=== PATIENT | male | born 1945 | race Caucasian/White ===

== ENCOUNTER 2017-09-04 13:02 | Outpatient (POV) | payer MEDICARE, SELFPAY | END 2017-09-04 17:05 | disposition home or self-care (01) | PROVIDERS: Visit Provider Podiatrist | DX: M86.172 Other acute osteomyelitis, left ankle and foot (principal); A48.0 Gas gangrene; E11.22 Type 2 diabetes mellitus with diabetic chronic kidney disease; E11.621 Type 2 diabetes mellitus with foot ulcer; Z48.00 Encounter for change or removal of nonsurgical wound dressing | CPT/HCPCS: 36415; 80048; 82550; 96365; 96375; J0878 ==

== ENCOUNTER → 2017-10-27 | Outpatient (POV) | payer MEDICARE, SELFPAY | PROVIDERS: Visit Provider Internal Medicine | DX: I25.10 Atherosclerotic heart disease of native coronary artery without angina pectoris (principal); I10 Essential (primary) hypertension; I65.23 Occlusion and stenosis of bilateral carotid arteries; E11.9 Type 2 diabetes mellitus without complications; R94.31 Abnormal electrocardiogram [ECG] [EKG]; I21.9 Acute myocardial infarction, unspecified | CPT/HCPCS: 93005 ==

== ENCOUNTER → 2017-11-02 18:00 | Outpatient (REF) | payer MEDICARE, SELFPAY | LOC: LAB 18:00 | PROVIDERS: PCP Orthopaedic Surgery; Visit Provider Orthopaedic Surgery | DX: R41.82 Altered mental status, unspecified (principal) | CPT/HCPCS: 87070; 87077; 87186; 87205 ==

== ENCOUNTER 2017-11-07 09:14 | Observation (INO) | payer MEDICARE, MEDICAID, SELFPAY ==
[2017-11-07] VITALS (20 sets, daily range): BP systolic 116–149; BP diastolic 59–76; PULSE 62–81; RESP 12–73; TEMP 36.4–36.7; O2SAT 94–100; BMI 30.4; BMI 27.7
--- NOTE | 2017-11-07 10:33 | HMH.ANESCL ---
[facility] Anesthesia Checklist - Patient Identification Patient Identification: Arm Band, Verbal (Name & ) - Structural Data Admitted From: Home Consent for Planned Operative Procedure(s) Verified: Yes Verified Documents: Surgical Consent - NPO Status Verified Time NPO: 00:00 - Additional verifications Anesthesia Reactions: No - Cardiovascular Assessment Pulse Strength: Strong Pulse Rhythm: Regular Peripheral Edema: No - Airway Assessment C-Spine Mobility Assessed: Yes TMJ Mobility Assessed: Yes Dentition: Edentulous - Neurological Assessment Level of Consciousness: Awake, Alert, Appropriate Hx Seizures: No Numbness or tingling in extremities: No - Genitourinary Assessment Urinary Incontinence: None - Anesthesia Plan Anesthesia Risk discussed: Yes ASA Class: III Anesthesia Type: General [facility] Anesthesia HX I have reviewed the patient's past medical history: Yes Medical History: Reports:: Coronary Artery Disease, Diabetes Mellitus Type 1, Gastroesophageal Reflux Disease, Myocardial Infarction, Renal Disease Laterality Cases: Left: Other (bka) Other Surgeries: Yes: EGD Amputation: Yes Fractures: No *Family Hx:: Unable to obtain
--- NOTE | 2017-11-07 10:36 | P.PN_ITS ---
[facility] Anesthesia Checklist - Patient Identification Patient Identification: Arm Band, Verbal (Name & ) - Structural Data Admitted From: Home Consent for Planned Operative Procedure(s) Verified: Yes Verified Documents: Surgical Consent - NPO Status Verified Time NPO: 00:00 - Additional verifications Anesthesia Reactions: No - Cardiovascular Assessment Pulse Strength: Strong Pulse Rhythm: Regular Peripheral Edema: No - Airway Assessment C-Spine Mobility Assessed: Yes TMJ Mobility Assessed: Yes Dentition: Edentulous - Neurological Assessment Level of Consciousness: Awake, Alert, Appropriate Hx Seizures: No Numbness or tingling in extremities: No - Genitourinary Assessment Urinary Incontinence: None - Anesthesia Plan Anesthesia Risk discussed: Yes ASA Class: III Anesthesia Type: General [facility] Anesthesia HX I have reviewed the patient's past medical history: Yes Medical History: Reports:: Coronary Artery Disease, Diabetes Mellitus Type 1, Gastroesophageal Reflux Disease, Myocardial Infarction, Renal Disease Laterality Cases: Left: Other (bka) Other Surgeries: Yes: EGD Amputation: Yes Fractures: No *Family Hx:: Unable to obtain
[2017-11-07 11:01] LABS: POC Glucose,Bedside 133 mg/dL
[2017-11-07 11:18] LABS: Anion Gap 15.9 mEq/L (5-15); Blood Urea Nitrogen 28 mg/dL (7-18); Carbon Dioxide 26 mmol/L (21.0-32.0); Chloride 101 mmol/L (98-107); Creatinine Clearance Estimated 44 mL/min (0-300); Creatinine,Serum 1.87 mg/dL (0.70-1.30); Estimated Glomerular Filt Rate 35 ml/min (>60); GFR (African American) 43 ML/MIN (>60); Glucose 136 mg/dL (74-106); Potassium 3.9 mmoL/L (3.5-5.1); Sodium 139 mmol/L (136-145)
[2017-11-07 11:19] LABS: Basophils % 0.3 % (0.1-2.0); Eosinophils # 0.1 K/mm3 (0.0-0.4); Eosinophils % 0.9 % (0.1-12.0); Hematocrit 33.6 % (42.0-52.0); Hemoglobin 10.7 g/dL (14.1-18.0); Lymphocytes # 1.9 K/mm3 (0.7-4.5); Lymphocytes % 14.3 K/mm3 (10-50); Mean Corpuscular HGB Conc 31.9 g/dL (31.8-35.4); Mean Corpuscular Hemoglobin 27.8 pg (27.0-31.2); Mean Corpuscular Volume 87.3 fl (80-94); Mean Platelet Volume 7.4 fl (7.4-10.4); Monocytes # 0.7 K/mm3 (0.1-1.0); Monocytes % 5.4 % (1.7-9.3); Neutrophils # 10.5 K/mm3 (1.8-7.8); Platelet Count 393 K/mm3 (142-424); Red Blood Count 3.85 M/mm3 (4.60-6.20); Red Cell Distribution Width 13.9 % (11.5-17.5); White Blood Count 13.2 K/mm3 (4.8-10.8)
[2017-11-07 12:39] LABS: Erythrocyte Sedimentation Rate > 120 mm/hr (0-20)
--- NOTE | 2017-11-07 12:48 | HMH.ANESI ---
[facility] Anesthesia Record Part I Intake, IV Amount: 1,200 Estimated blood loss (mL): 100 Urine output (mL): 0 Blood Pressure: 116/59 SaO2: 100 Pulse Rate: 74 Respiratory Rate: 12 Temperature: 97.9 F Patient is:: Awake, Stable Stable to PACU at:: 12:45
--- NOTE | 2017-11-07 12:49 | HMH.ANESII ---
[facility] Anesthesia Record Part II Discharge Time: 13:15 Destination: floor PACU nurse assessment reviewed?: Yes Patient Condition:: Good Anesthesia Complications:: None
--- NOTE | 2017-11-07 14:16 | SW/DCPLANNER ---
I have spoke with Sara from [facility] regarding this patient. Sara has stated that the plan is for this patient to discharge back to [facility] tomorrow once ready for discharge.
--- NOTE | 2017-11-07 15:23 | PC.NURSE ---
11/07/17 1253 Pt awake at this time/ LMA out
--- NOTE | 2017-11-07 15:35 | PC.NURSE ---
11/07/17 1315 Pt transported via bed to room 214 2nd floor med/surg per rocio roldan and juanita,rn at this time. Pt transported on O2 at 2lpm per nc d/t drowsiness. Pt stable upon leaving pacu. Pt left in care of ROCIO Reyes at bedside/stable.
--- NOTE | 2017-11-07 15:44 | SUR.OPER ---
Addendum entered by Gloria Evans RN 11/07/17 16:49: PROCEDURE DONE: IRRIGATION AND DRAINAGE OF LEFT BELOW THE KNEE AMPUTATION INFECTION Original Note: two sets of cultures taken: set #1 is left leg lateral knee, anaerobic culture and wound culture set #2 is left leg medial knee, anaerobic culture and wound culture
--- NOTE | 2017-11-07 18:59 | PC.NURSE ---
PATIENT IS A POST OP PATIENT HAVING AN I & D TODAY OF THE LEFT LOWER LEG. HE IS RESTING IN BED AT THIS TIME WITH NO COMPLAINTS. VITAL SIGNS ARE STABLE, LUNGS SOUND DIMINISHED WITH FINE CRACKLES ON THE RIGHT SIDE. NO DISTRESS NOTED AT THIS TIME WILL CONTINUE TO MONITOR.
[2017-11-08] VITALS (9 sets, daily range): BP systolic 124–146; BP diastolic 56–70; PULSE 56–67; RESP 16–20; TEMP 36.3–36.7; O2SAT 95–97; BMI 27.6
[2017-11-08 01:57] LABS: POC Glucose,Bedside 129 mg/dL
[2017-11-08 01:57] LABS: POC Glucose,Bedside 171 mg/dL
--- NOTE | 2017-11-08 06:48 | PC.NURSE ---
PT HAS NOT C/O PAIN OR DISCOMFORT TO LLE. DRESSING TO LLE INTACT. PT RESTING IN BED. V/S HAVE REMAINED STABLE. MEDICATIONS ADMINISTERED PER MAR. NO CONCERNS NOTED AT THIS TIME. WILL CONTINUE TO MONITOR.
[2017-11-08 06:56] LABS: POC Glucose,Bedside 74 mg/dL
--- NOTE | 2017-11-08 07:52 | PC.NURSE ---
REPORT HANDOFF TO CAROLYN DAWKINS
--- NOTE | 2017-11-08 08:02 | PC.NURSE ---
REPORT FROM Erm[facility] CHILD RN THIS AM
--- NOTE | 2017-11-08 09:19 | HMH.OPNOTE ---
Date of procedure: 11/08/17 Pre-op Diagnosis:: MRSA infectionLeft BKA stump Post-op diagnosis:: same Procedure performed:: Incision, irrigation, debridement, of left BKA stump infection Surgeon:: Jame Murdock MD PATIENT OBSERVER:: Other Anesthesia: other Estimated blood loss (mL): 5 Clinical Note:: The patient underwent left BKA for severe peripheral vascular disease and limb infection approximately 3 weeks ago.Aspiration of a small hematoma in clinic grew MRSA...Formal incision, irrigation, debridement is indicated to help resolve this infection.At time of surgery, it was noted that the Steri-Strips that have been placed here in clinic had been removed and other Steri-Strips placed.This Has occurred in the few days since sutures were removed Operative findings:: The patient was taken the operating room placed in the supine position. At the time of surgery, it was noted that the Steri-Strips that we had carefully placed in our clinic some 5 days ago had been removed and other Steri-Strips have been placed. After administration of general anesthesia prepped and draped in the usual sterile fashion. The lateral area of dehiscence was carefully spread with Metzenbaum scissors and we used a curette and a 15 blade to remove nonviable subcutaneous fat and fascia. We then used nonpulsatile irrigation using a bulb syringe so as to avoid trauma from pulsatile flow. The wound was thoroughly evacuated. I should mention, prior to this debridement, we did collect a specimen for culture and sensitivity and submitted for laboratory analysis. After this was copiously irrigated, we performed this same sequence on the medial wound area of dehiscence using separate scissors and separate bulb irrigation set up. Again cultures were taken and submitted as an independent culture. After debridement of both the medial and lateral aspects of the wound, we carefully packed a gauze sponge soaked with a 10-1 dilution of Betadine and normal saline. Dressings were applied and the patient taken to the postanesthesia care unit in good condition. Tourniquet time (min): 0 Condition: stable Disposition: PACU Specimens:: 2 specimens submitted for culture and sensitivity consisting of aerobic and anaerobic specimens Complications:: None
--- NOTE | 2017-11-08 09:33 | HMH.OPNOTE ---
Date of procedure: 11/07/17 Pre-op Diagnosis:: Left below knee amputation stump infection with MRSA Post-op diagnosis:: same Procedure performed:: Incision, irrigation, debridement of left BKA stump infection Surgeon:: Jame Murdock MD PASSENGER RATE CLERK:: Other Anesthesia: other Estimated blood loss (mL): 5 Clinical Note:: Patient is an adult male with severe peripheral vascular disease who underwent a left below-knee amputation several weeks ago. See him back in approximately 3 week point. He had developed a small seroma and the seroma was aspirated. Cultures were submitted and later grew MRSA. As such, formal incision, irrigation, and debridement are indicated to help resolve this wound infection. Operative findings:: The patient taken to the operating room and placed in the supine position and given a general anesthetic. We noted at time of surgery that the Steri-Strips we had placed in our office some 5 days ago had been removed and replaced with other Steri-Strips which are not available here at [facility]. The lateral aspect of the wound showed slight dehiscence as did the medial aspect. After appropriate prepping and draping, we spread the lateral aspect of the wound and also the medial aspect of the wound using separate instruments to avoid any potential cross contamination despite the fact these were likely involving similar organisms. We did not find a deep pocket of infection nor gross purulence. We debrided full-thickness epidermis, dermis, subcutaneous fat, and down to the fascia of the muscle. We irrigated with a bulb syringe to avoid traumatizing tissue with pulsatile lavage. Each wound was irrigated separately and with a separate bulb syringe irrigation set up. We used a curette and a 15 blade to remove nonviable fascia and fat. Following this, a dilute Betadine solution of approximately 10-1 was utilized to soak gauze. These gauze sponges were then placed into the each wound and dressings were applied. No tourniquet had been utilized during this case. The patient was awakened and transported to the recovery room in satisfactory condition *Plan will call for consultative pharmacy and likely use of either vancomycin, daptomycin, ertapenem as indicated by sensitivity results. We will also. contact our wound care clinic well as the patient's primary care physician Pathology: other (Culture and sensitivity aerobic and anaerobic are sent. 2 specimens submitted) Condition: stable Disposition: PACU Complications:: None
--- NOTE | 2017-11-08 09:38 | P.OP_ITS ---
Date of procedure: 11/07/17 Pre-op Diagnosis:: Left below knee amputation stump infection with MRSA Post-op diagnosis:: same Procedure performed:: Incision, irrigation, debridement of left BKA stump infection Surgeon:: Jame Murdock MD HEAT TRANSFER TECHNICIAN:: Other Anesthesia: other Estimated blood loss (mL): 5 Clinical Note:: Patient is an adult male with severe peripheral vascular disease who underwent a left below-knee amputation several weeks ago. See him back in approximately 3 week point. He had developed a small seroma and the seroma was aspirated. Cultures were submitted and later grew MRSA. As such, formal incision, irrigation, and debridement are indicated to help resolve this wound infection. Operative findings:: The patient taken to the operating room and placed in the supine position and given a general anesthetic. We noted at time of surgery that the Steri-Strips we had placed in our office some 5 days ago had been removed and replaced with other Steri-Strips which are not available here at [facility]. The lateral aspect of the wound showed slight dehiscence as did the medial aspect. After appropriate prepping and draping, we spread the lateral aspect of the wound and also the medial aspect of the wound using separate instruments to avoid any potential cross contamination despite the fact these were likely involving similar organisms. We did not find a deep pocket of infection nor gross purulence. We debrided full-thickness epidermis, dermis, subcutaneous fat , and down to the fascia of the muscle. We irrigated with a bulb syringe to avoid traumatizing tissue with pulsatile lavage. Each wound was irrigated separately and with a separate bulb syringe irrigation set up. We used a curette and a 15 blade to remove nonviable fascia and fat. Following this, a dilute Betadine solution of approximately 10-1 was utilized to soak gauze. These gauze sponges were then placed into the each wound and dressings were applied. No tourniquet had been utilized during this case. The patient was awakened and transported to the recovery room in satisfactory condition *Plan will call for consultative pharmacy and likely use of either vancomycin, daptomycin, ertapenem as indicated by sensitivity results. We will also. contact our wound care clinic well as the patient's primary care physician Pathology: other (Culture and sensitivity aerobic and anaerobic are sent. 2 specimens submitted) Condition: stable Disposition: PACU Complications:: None
--- NOTE | 2017-11-08 10:25 | PC.NURSE ---
PATIENT HAS AN AMPUTATION LEFT LOWER LEG DRESSING INTACT CANNOT EVALUATE AT THIS TIME.
--- NOTE | 2017-11-08 14:35 | P.CONPHA_ITS ---
[facility] Pharmacy VTE Monitoring - Patient Demographics Admission date: 11/07/17 Report Date: 11/08/17 Time: 14:34 Allergies/Adverse Reactions: No Known Allergies Allergy (Verified 11/07/17 09:46) Height: 1.73 m Weight: 82.639 kg - VTE Risk Labs: VTE Related Lab Results Hgb 10.7 g/dL (14.1-18.0) L 11/07/17 10:51 Hct 33.6 % (42.0-52.0) L 11/07/17 10:51 Plt Count 393 K/mm3 (142-424) 11/07/17 10:51 BUN 28 mg/dL (7-18) H 11/07/17 10:51 Creatinine 1.87 mg/dL (0.70-1.30) H 11/07/17 10:51 Estimated Creat Clear 44 mL/min (0-300) 11/07/17 10:51 Was VTE Risk Assessment Performed: No VTE Risk Level: Low Risk Clinical Trial Participant: No - Prophylaxis VTE Prophylaxis Ordered?: Yes Types of VTE Prophylaxis: Pharmacological Pharmacologic Type: Other (ASPIRIN AND PLAVIX PER MD)
--- NOTE | 2017-11-08 14:49 | SW/DCPLANNER ---
Patient will not discharge back to [facility] this afternoon. Sara has been informed of this situation. I will notify Sara once patient is ready for discharge.
--- NOTE | 2017-11-08 15:19 | HMH.PTWOUND ---
Rehab Inpt Wound Evaluation Rehab IP Wound Evaluation Start: 11/08/17 14:59 Freq: once Status: Active Protocol: Document 11/08/17 09:45 PHOCELESTE (Rec: 11/08/17 15:19 PHORNE [id number]) Rehab PT Wound Assessment Subjective Subjective 72 yom adm to [facility] with Left LE wounds at incision site of prior BKA ~ 1 mo ago due to gangrene. Wound Left Leg Wound Type Incision Is This a Chronic Wound No Wound penetrating to tendon or capsule w/ infection Wound Length (cm) 5.0 Wound Width (cm) 12.0 Wound Depth (cm) 5.0 Wound Bed Appearance Dusky Red Percentage Granulated (%) 50 Percentage of Slough (%) 50 Wound Margins Description Necrotic Edema Type Non-Pitting Edema Degree 1+ Query Text:1+ Trace, Barely Detectable, Rebound 15-30 seconds 2+ Moderate, Slight Indentation, Rebound 10-20 seconds 3+ Deep, Deeper Indentation, Rebound > 30 seconds 4+ Very Deep, Rebound > 60 seconds Wound Drainage Description Serosanguineous Purulent Drainage Amount None Drainage Odor No Odor Dressing Status Changed Soiled Wound Topical Solution/Irrigant Saline Irrigant Packing Type Alginate Primary Dressing foam Wound Secondary Dressing Type Gauze Roll/Wrap Wound Debridement Method Mechanical Wound Debridement Amount of Tissue None Removed Dressing Change Date 11/08/17 Dressing Change Patient Tolerance Tolerated Well Plan/Recommendation Comment Return to [facility] once medically stable. Pack with Calcium Alginate once every 2- 3 days as need with appropriate secondary dressing . Eval Complexity Eval Charge Codes 22540 - High Complexity G-codes PT Current Status Self Care PT Current Status Modifier CM-At least 80% but less than 100% impaired, limited or restricted PT Goal Status Self Care PT Goal Status Modifer CM-At least 80% but less than 100% impaired, limited or restricted PHYSICIAN CERTIFICATION: I certify the specified therapy services for Stacey Plascencia are required, authorized, and reviewed every 30
--- NOTE | 2017-11-08 18:55 | PC.NURSE ---
PATIENT HAS DONE WELL TODAY COMPLAINED OF PAIN X 1 AND WAS MEDICATED PER ORDER. HE HAS EATEN 100% OF ALL MEALS TODAY. DRESSING IS CLEAN DRY AND INTACT, DRESSING WAS CHANGED BY THERAPY TODAY. DR. LASSITER VISITED AT BEDSIDE. LUNG SOUNDS ARE DIMINISHED IN THE BASES AND NOTED SOME FINE CRACKLES IN THE RIGHT LOWER LOBE. PATIENT HAS NOT REQUIRED INSULIN TODAY. WILL CONTINUE TO MONITOR. CAROLYN DAWKINS, MSN, RN
[2017-11-08 20:32] LABS: POC Glucose,Bedside 125 mg/dL
[2017-11-08 20:32] LABS: POC Glucose,Bedside 117 mg/dL
[2017-11-08 20:32] LABS: POC Glucose,Bedside 118 mg/dL
[2017-11-09] VITALS: BP 166/72; RESP 18; TEMP 36.4; O2SAT 97
--- NOTE | 2017-11-09 01:09 | PC.NURSE ---
WAS UNABLE TO CHART PATIENTS PULSE RATE IN VITAL SIGNS . HE PULSE RATE WAS 69
[2017-11-09 04:15] VITALS: BP 153/52; RESP 18; TEMP 36.5; O2SAT 95
--- NOTE | 2017-11-09 04:41 | PC.NURSE ---
PATIENT HAS SLEPT WELL THIS SHIFT. DRESSING TO RLE REMAINS CDI. PATIENT C/O PAIN TO BUTTOCK AND RLE X1 AND RECEIVED PRN PAIN MEDICATION, WHICH WAS EFFECTIVE. RESP EVEN AND UNLABORED. NO DISTRESS NOTED. PATIENT HAS BEEN TURNED AND REPOSITIONED EVERY 2 HOURS THIS SHIFT TO PREVENT FURTHER SKIN BREAKDOWN. PATIENT CURRENTLY IN BED ASLEEP. NO OTHER PROBLEMS NOTED AT THIS TIME. VSS. WILL CONTINUE TO MONITOR. SAFETY MEASURES IN PLACE, CALL LIGHT IN REACH.
--- NOTE | 2017-11-09 05:25 | PC.NURSE ---
Still unable chart patients pulse rate . PATIENTS pulse rate is 56
[2017-11-09 06:39] LABS: POC Glucose,Bedside 62 mg/dL
[2017-11-09 08:00] VITALS: BP 138/62; PULSE 63; RESP 20; TEMP 36.4
--- NOTE | 2017-11-09 10:16 | XR_ITS ---
XR chest portable PICC plac HISTORY: ITS.REASON: Confirm PICC line placement ORDERING PHYSICIAN: Jame Murdock MD PATIENT AGE: 72 years COMPARISON: 10/17/2017 FINDINGS: Left upper extremity PICC line has been inserted. The tip is in good position in the region of the superior vena cava. There is a small left pleural effusion with minimal atelectatic change in the left lung base. Right lung is clear. Unremarkable heart size. IMPRESSION: 1. Good placement of PICC line. 2. Small left effusion with mild left basilar atelectasis.
[2017-11-09 11:42] LABS: POC Glucose,Bedside 105 mg/dL
--- NOTE | 2017-11-09 13:20 | HMH.ORTHPN ---
Subjective Date: 11/09/17 Time: 09:00 PN: Obj Ex Vital signs: Temp Pulse Resp BP Pulse Ox 97.5 F L 63 20 138/62 95 11/09/17 08:00 11/09/17 08:00 11/09/17 08:00 11/09/17 08:00 11/09/17 04:15 - Constitutional Comments: The patient is seen with Obdulio Hansen of physical therapy/wound management. He denies pain. His dressings are removed and the wound inspected. Centrally there appears to be adequate blood flow. Medially and laterally, the wounds appear marginal as far as blood flow. We have elected to pack with a dilute Betadine solution and begin wet-to-dry dressings daily. We will plan on rechecking him next week after discharge to his retirement. He may be a candidate for a wound VAC at that time. I have also discussed with the patient that he may need revision to a higher level. In the meantime we will continue antibiotics and his regular medications. Patient's vital signs are reviewed as well Progress Note: A&P - Time Spent With Patient 25 - 35 minutes (Wet to dry dressings applied by me ?2)
--- NOTE | 2017-11-09 13:24 | P.PN_ITS ---
Subjective Date: 11/09/17 Time: 09:00 PN: Obj Ex Vital signs: Temp Pulse Resp BP Pulse Ox 97.5 F L 63 20 138/62 95 11/09/17 08:00 11/09/17 08:00 11/09/17 08:00 11/09/17 08:00 11/09/17 04:15 - Constitutional Comments: The patient is seen with Obdulio Hansen of physical therapy/wound management. He denies pain. His dressings are removed and the wound inspected. Centrally there appears to be adequate blood flow. Medially and laterally, the wounds appear marginal as far as blood flow. We have elected to pack with a dilute Betadine solution and begin wet-to-dry dressings daily. We will plan on rechecking him next week after discharge to his halfway. He may be a candidate for a wound VAC at that time. I have also discussed with the patient that he may need revision to a higher level. In the meantime we will continue antibiotics and his regular medications. Patient's vital signs are reviewed as well Progress Note: A&P - Time Spent With Patient 25 - 35 minutes (Wet to dry dressings applied by me ?2)
--- NOTE | 2017-11-09 13:24 | HMH.DCSUM ---
General - General Admission date: 11/07/17 Discharge date: 11/09/17 HPI HPI: The patient underwent below-knee amputation for severe peripheral vascular disease and left lower limb infection approximately 3 weeks ago. He is developed a wound infection growing MRSA. He has been taken back to the operating room for I&D of the abscess. He is ready to return to his nursing facility at this time Objective Vital signs: Temp Pulse Resp BP Pulse Ox 97.5 F L 63 20 138/62 95 11/09/17 08:00 11/09/17 08:00 11/09/17 08:00 11/09/17 08:00 11/09/17 04:15 - *Routine Respiratory Exam Present: CTA bilaterally - *Routine Cardiovascular Exam Present: RRR, Normal S1, Normal S2 - *Routine Rectal Exam Comments: Rectal examination is not indicated on this patient - *Routine Exam Comments: Not indicated this admission - *Routine Extremities Exam Comments: Pedal pulses are not palpable on the right lower extremity due to known peripheral vascular disease. BKA incision line with dehiscence as noted previously. Growing MRSA. Questionable viability far as healing - *Routine Skin Exam Comments: No evidence of decubitus ulcerations are pending ulcerations. The amputation incision is intact in the middle with slight dehiscence medially and more significant dehiscence laterally. Both medially and laterally have been packed with wet-to-dry gauze dressings diluted with Betadine approximately 10-1 - *Routine Neurological Exam Present: alert, oriented X3 Results Labs on day of discharge: Labs from last 24 hours 11/09/17 11/09/17 11/08/17 11:31 06:23 20:23 POC Glucose 105 62 118 11/08/17 11/08/17 16:48 11:30 POC Glucose 125 117 Preliminary micro results at discharge 11/07/17 Unknown Wound Culture - Preliminary Knee,Left Gram Positive Cocci Meds Home Medications Medication Instructions Recorded Confirmed Type Acetaminophen [Tylenol 500mg 500 mg PO Q4HP PRN 11/07/17 11/07/17 History tablet] Amlodipine Besylate [Norvasc 5mg 5 mg PO DAILY 11/07/17 11/07/17 History tablet] Aspirin [Aspir 81] 81 mg PO DAILY 11/07/17 11/07/17 History Clopidogrel Bisulfate [Plavix 75mg 75 mg PO DAILY 11/07/17 11/07/17 History Tab] Collagenase Clostridium Hist. 30 gm TP DAILY 11/07/17 11/07/17 History [Santyl Ointment 30gm] Glimepiride 4 mg PO DAILY 11/07/17 11/07/17 History Insulin Glargine,Hum.rec.anlog 26 unit SQ 2100 11/07/17 11/07/17 History [Insulin Glargine 100 Units/mL 3mL flexpen] Insulin Lispro [Humalog Kwikpen 0 unit SQ ACHS PRN 11/07/17 11/07/17 History U-100] Ipratropium/Albuterol Sulfate 3 ml IH QIDP PRN 11/07/17 11/07/17 History [Duoneb 3mL neb] LORazepam [Ativan 0.5mg tablet] 0.5 mg PO NEEDED PRN 11/07/17 11/07/17 History Lisinopril [Lisinopril 20mg Tab] 20 mg PO DAILY 11/07/17 11/07/17 History Metoprolol Tartrate [Metoprolol 150 mg PO BID 11/07/17 11/07/17 History Tartrate 100mg Tablet] Nystatin [Nystatin Cr 100,000 1 oint TOPICAL TID 11/07/17 11/07/17 History Units/GM 30GM] Oxycodone HCl/Acetaminophen 1 each PO Q6HP PRN 11/07/17 11/07/17 History [Endocet 5-325 Tablet] Pantoprazole Sodium [Protonix 40mg 40 mg PO DAILY 11/07/17 11/07/17 History tablet] Polyethylene Glycol 3350 [Miralax 17 gm PO DAILYP PRN 11/07/17 11/07/17 History 17gm Packet] Potassium Chloride [K-Tab ER 20 40 meq PO BID 11/07/17 11/07/17 History mEq] Povidone-Iodine [Betadine] 15 ml TP NEEDED PRN 11/07/17 11/07/17 History Sertraline HCl [Zoloft] 50 mg PO DAILY 11/07/17 11/07/17 History Simvastatin 80 mg PO DAILY 11/07/17 11/07/17 History Sucralfate [Sucralfate 1gm 1 gm PO ACHS 11/07/17 11/07/17 History Tab] Triamcinolone Acetonide 1 gm TP BID 11/07/17 11/07/17 History cephALEXin [Keflex 500mg Cap] 500 mg PO QID 11/07/17 11/07/17 History hydroCHLOROthiazide [HCTZ 25mg 25 mg PO DAILY 11/07/17 11/07/17 History tab
--- NOTE | 2017-11-09 13:27 | P.DS_ITS ---
General - General Admission date: 11/07/17 Discharge date: 11/09/17 HPI HPI: The patient underwent below-knee amputation for severe peripheral vascular disease and left lower limb infection approximately 3 weeks ago. He is developed a wound infection growing MRSA. He has been taken back to the operating room for I&D of the abscess. He is ready to return to his nursing facility at this time Objective Vital signs: Temp Pulse Resp BP Pulse Ox 97.5 F L 63 20 138/62 95 11/09/17 08:00 11/09/17 08:00 11/09/17 08:00 11/09/17 08:00 11/09/17 04:15 - *Routine Respiratory Exam Present: CTA bilaterally - *Routine Cardiovascular Exam Present: RRR, Normal S1, Normal S2 - *Routine Rectal Exam Comments: Rectal examination is not indicated on this patient - *Routine Exam Comments: Not indicated this admission - *Routine Extremities Exam Comments: Pedal pulses are not palpable on the right lower extremity due to known peripheral vascular disease. BKA incision line with dehiscence as noted previously. Growing MRSA. Questionable viability far as healing - *Routine Skin Exam Comments: No evidence of decubitus ulcerations are pending ulcerations. The amputation incision is intact in the middle with slight dehiscence medially and more significant dehiscence laterally. Both medially and laterally have been packed with wet-to-dry gauze dressings diluted with Betadine approximately 10-1 - *Routine Neurological Exam Present: alert, oriented X3 Results Labs on day of discharge: Labs from last 24 hours 11/09/17 11/09/17 11/08/17 11:31 06:23 20:23 POC Glucose 105 62 118 11/08/17 11/08/17 16:48 11:30 POC Glucose 125 117 Preliminary micro results at discharge 11/07/17 Unknown Wound Culture - Preliminary Knee,Left Gram Positive Cocci Meds Home Medications Medication Instructions Recorded Confirmed Type Acetaminophen [Tylenol 500mg 500 mg PO Q4HP PRN 11/07/17 11/07/17 History tablet] Amlodipine Besylate [Norvasc 5mg 5 mg PO DAILY 11/07/17 11/07/17 History tablet] Aspirin [Aspir 81] 81 mg PO DAILY 11/07/17 11/07/17 History Clopidogrel Bisulfate [Plavix 75mg 75 mg PO DAILY 11/07/17 11/07/17 History Tab] Collagenase Clostridium Hist. 30 gm TP DAILY 11/07/17 11/07/17 History [Santyl Ointment 30gm] Glimepiride 4 mg PO DAILY 11/07/17 11/07/17 History Insulin Glargine,Hum.rec.anlog 26 unit SQ 2100 11/07/17 11/07/17 History [Insulin Glargine 100 Units/mL 3mL flexpen] Insulin Lispro [Humalog Kwikpen 0 unit SQ ACHS PRN 11/07/17 11/07/17 History U-100] Ipratropium/Albuterol Sulfate 3 ml IH QIDP PRN 11/07/17 11/07/17 History [Duoneb 3mL neb] LORazepam [Ativan 0.5mg tablet] 0.5 mg PO NEEDED PRN 11/07/17 11/07/17 History Lisinopril [Lisinopril 20mg Tab] 20 mg PO DAILY 11/07/17 11/07/17 History Metoprolol Tartrate [Metoprolol 150 mg PO BID 11/07/17 11/07/17 History Tartrate 100mg Tablet] Nystatin [Nystatin Cr 100,000 1 oint TOPICAL TID 11/07/17 11/07/17 History Units/GM 30GM] Oxycodone HCl/Acetaminophen 1 each PO Q6HP PRN 11/07/17 11/07/17 History [Endocet 5-325 Tablet] Pantoprazole
--- NOTE | 2017-11-09 15:28 | SW/DCPLANNER ---
I have notified Sara from [facility] to let her know that this patient will be discharging back to them today 11/09/17 and has ordered for a wound VAC to be placed once admitted back to [facility]. Patient discharge information has already been faxed to [facility]. Sara has no other questions at this time.
== END 2017-11-09 17:03 ==
LOC: 2ND 09:16
PROVIDERS: Admitting Provider Orthopaedic Surgery; PCP Orthopaedic Surgery; Visit Provider Orthopaedic Surgery
PROC: (CPT 11043; principal; 2017-11-07 11:00)
DX: T87.44 Infection of amputation stump, left lower extremity (principal); E11.52 Type 2 diabetes mellitus with diabetic peripheral angiopathy with gangrene; I21.3 ST elevation (STEMI) myocardial infarction of unspecified site; I96 Gangrene, not elsewhere classified; B95.62 Methicillin resistant Staphylococcus aureus infection as the cause of diseases classified elsewhere; E78.2 Mixed hyperlipidemia; I25.119 Atherosclerotic heart disease of native coronary artery with unspecified angina pectoris; I11.9 Hypertensive heart disease without heart failure
CPT/HCPCS: 11043; 36569; 71045; 80048; 82962; 85025; 85651; 86141; 87070; 87077; 87186; 87205; 96374; C1751; G0378; J0878; J1335

== ENCOUNTER 2017-11-26 17:33 | Emergency (ER) | payer MEDICARE, MEDICAID, SELFPAY ==
[2017-11-26 17:34] VITALS: BP 123/64; PULSE 82; RESP 18; TEMP 36.6; O2SAT 99; BMI 27.3
--- NOTE | 2017-11-26 17:39 | XR_ITS ---
XR chest AP Ordering Physician: Collette Gonzalez MD Patient Age: 72 years: Male HISTORY: ITS.REASON: fall TECHNIQUE: AP portable chest COMPARISON :Previous portable chest 11/09/2017 and September 2017., CT ofcervical spine from today includes the upper lung maurice and is helpful for correlation as well.. FINDINGS Suboptimal inspiration. With Diaphragms only down to the anterior fourth fifth rib on right. Slight elevation right hemidiaphragm compared to previous study. Accentuation of markings at the right and left suprahilar region. Initially I would question early infiltrate here but this CT cervical spine which include this portion of the lung shows no infiltrate. Favor merely suboptimal inspiration and atelectasis. If respiratory symptoms persist consider follow-up Mild cardiomegaly. Coronary artery stent noted The blunting left CP angle is similar to previous chest films. October 2017 most likely chronic pleural change and less likely small pleural effusion PICC line enters from the left tip at SVC. -----IMPRESSION: --------- 1. Poor inspiration. Limited portable chest Accentuated markings apices most likely due to atelectasis] for symptoms recommend follow-up Note Accentuation of markings at the right suprahilar & left suprahilar region towards upper lobes appears to reflect atelectasis as CT C-spine from today shows the upper lung maurice to be clear with no airspace disease, with better inspiration Also lucent line along lateral margin right lung base on CXR appears to be a skin fold with no pneumothorax evident on the CT C-spine slices through upper lungs 2. Cardiomegaly. Stable PICC line... 3. If chest pain or respiratory symptoms. Would recommend follow-up CXR 2 view
--- NOTE | 2017-11-26 17:39 | XR_ITS ---
XR hip LT 2-3V w/pelvis HISTORY: Posttraumatic pain ITS.REASON: fall ORDERING PHYSICIAN: Collette Gonzalez MD PATIENT AGE: 72 years COMPARISON: None FINDINGS: No fracture or dislocation is evident. Mild osteoarthritic change. Generalized vascular calcification. IMPRESSION: Mild osteoarthritis, no acute fracture
--- NOTE | 2017-11-26 17:42 | CT_ITS ---
CT cervical spine wo con CLINICAL INDICATION: Neck pain following injury ITS.REASON: fall ORDERING PHYSICIAN: Collette Gonzalez MD PATIENT AGE: 72 years COMPARISON: None FINDINGS: Normal alignment. No fracture or dislocation. No lytic or blastic change. Prior right occipital craniectomy. 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
--- NOTE | 2017-11-26 17:42 | CT_ITS ---
CT head/brain wo con HISTORY: Headache, head pain following blunt trauma, contusion or hematoma ITS.REASON: fall ORDERING PHYSICIAN: Collette Gonzalez MD PATIENT AGE: 72 years COMPARISON: 09/07/2017 TECHNIQUE: Axial images obtained without contrast. Brain and bone windows reviewed. FINDINGS: Prior right craniectomy in the right posterior fossa with encephalomalacia change in the right cerebellar hemisphere. No midline shift or mass effect. Mild atrophy with periventricular ischemic gliotic change. No acute intracranial hemorrhage. IMPRESSION: 1. No acute intracranial findings. 2. Postsurgical change with atrophy, encephalomalacia, and chronic microangiopathic changes
--- NOTE | 2017-11-26 18:25 | HMH.EDFALL ---
ED Disposition Clinical Impression: Fall, Anemia, Renal insufficiency, Hx of BKA, Osteomyelitis, Diabetic complication, PVD (peripheral vascular disease) Disposition: Home, Self-Care Condition on Discharge: Good Additional Instructions: Instrucrtions for the [place] staff: 1- repeat CBC and BMP in AM , report results to Dr martinez. If transfusion needed it can be done as outpatient per Dr Moser. 2- review final CXR and pelvis reports with Dr Martinez. Referrals: Hany Martinez MD [Primary Care Provider] - - Critical Care Critical Care Time: No Attestation: On 11/26/17, the high probability of a clinically significant, sudden or life threatening deterioration of the following system(s) required my full and direct attention, intervention and personal management. The time I documented below is in addition to time spent performing reported procedures but includes the following listed in this critical care notation. Medical Decision Making - Medical Records Medical records reviewed: Yes: I reviewed the patient's medical records. Vital Signs: 11/26/17 17:34 11/26/17 19:33 Temperature 97.8 F Temperature Source Oral Pulse Rate [Right Brachial] 82 58 L Respiratory Rate 18 16 Blood Pressure [123/64] 123/64 140/75 Blood Pressure Mean [123/64] 83 96 Blood Pressure Source [123/64] Automatic Cuff Blood Pressure Position [123/64] Sitting 02 Sat by Pulse Oximetry 99 94 L Oxygen Delivery Method Room Air - Lab Data Lab Results 11/26/17 18:30: WBC 9.0, RBC 2.95 L, Hgb 8.3 L, Hct 26.0 L, MCV 88.0, MCH 27.9, MCHC 31.7 L, RDW 14.5, Plt Count 456 H, MPV 7.1 L, Neut % (Auto) 74.4, Lymph % (Auto) 15.6, Whiteside % (Auto) 6.8, Eos % (Auto) 2.7, Baso % (Auto) 0.5, Neut # (Auto) 6.7, Lymph # (Auto) 1.4, Whiteside # (Auto) 0.6, Eos # (Auto) 0.2, Baso # (Auto) 0.0 11/26/17 18:50: Sodium 141, Potassium 4.7, Chloride 107, Carbon Dioxide 27, Anion Gap 11.7, BUN 33 H, Creatinine 1.78 H, Estimated Creat Clear 42, Estimated GFR 38 L, Est GFR ( Amer) 45 L, Glucose 187 H, Calcium 8.3 L, Total Bilirubin 0.2, AST 17, ALT 19, Alkaline Phosphatase 126 H, Total Creatine Kinase 31 L, CK-MB (CK-2) < 0.5, CK-MB (CK-2) Rel Index 1.6, Troponin I < 0.02, Total Protein 7.1, Albumin 2.2 L, Globulin 4.9 H, Albumin/Globulin Ratio 0.4 L 11/26/17 20:08: Stool Occult Blood Positive A Result diagrams: 11/26/17 18:30 11/26/17 18:50 Orders (Tests/Meds): ORDERS Category Date Time Status CT cervical spine wo con Stat Cat Scan 11/26/17 17:[address] head/brain wo con Stat Cat Scan 11/26/17 17:42 Taken XR chest AP Stat Exams 11/26/17 17:39 Taken XR hip LT 2-3V w/pelvis Stat Exams 11/26/17 17:39 Taken Blood Culture Stat Micro 11/26/17 19:00 Received - Radiology Data #1 Image(s): Chest, Pelvis Image Reviewed: Yes I reviewed the patient's radiology image Preliminary Findings: Normal/NAD - CT Data CT Scan: Head, C-Spine Time Received: 20:[address] Reviewed: Yes: I have viewed the radiologist's interpretation - ECG Data Tracing #1 64 normal sinus rhythm T-wave inversion in inferior leads lateral leads. This is an improvement from prior EKGs done on 1220 and [address] elevation nferior wall [place]. I reviewed all his ECGs in this facility. Only normal EKG was in March 2013. ECG initial impression date: 11/26/17 - Keith Inquiry Pt receiving controlled substance: No Keith was queried for this patient: No Medical Decision Making Narrative: Mr. Ms. Amaya remained stable during his ED stay. I reviewed his recent hemoglobin with Dr. Moser was television agent for Dr. Martinez. He feels that repeat CBC in the morning and reported Dr. Martinez would be most appropriate. If it drops any more he can transfuse him as an outpatient. Dr Moser will notify Dr Martinez in AM for follow up. Addendum. Rectal exam had no melanotic stool but the test it was read as positive, most likely because of a grade
--- NOTE | 2017-11-26 18:30 | ED_ITS ---
ED Disposition Clinical Impression: Fall, Anemia, Renal insufficiency, Hx of BKA, Osteomyelitis, Diabetic complication, PVD (peripheral vascular disease) Disposition: Home, Self-Care Condition on Discharge: Good Additional Instructions: Instrucrtions for the [place] staff: 1- repeat CBC and BMP in AM , report results to Dr martinez. If transfusion needed it can be done as outpatient per Dr Moser. 2- review final CXR and pelvis reports with Dr Martinez. Referrals: Hany Martinez MD [Primary Care Provider] - - Critical Care Critical Care Time: No Attestation: On 11/26/17, the high probability of a clinically significant, sudden or life threatening deterioration of the following system(s) required my full and direct attention, intervention and personal management. The time I documented below is in addition to time spent performing reported procedures but includes the following listed in this critical care notation. Medical Decision Making - Medical Records Medical records reviewed: Yes: I reviewed the patient's medical records. Vital Signs: 11/26/17 17:34 11/26/17 19:33 Temperature 97.8 F Temperature Source Oral Pulse Rate [Right Brachial] 82 58 L Respiratory Rate 18 16 Blood Pressure [123/64] 123/64 140/75 Blood Pressure Mean [123/64] 83 96 Blood Pressure Source [123/64] Automatic Cuff Blood Pressure Position [123/64] Sitting 02 Sat by Pulse Oximetry 99 94 L Oxygen Delivery Method Room Air - Lab Data Lab Results 11/26/17 18:30: WBC 9.0, RBC 2.95 L, Hgb 8.3 L, Hct 26.0 L, MCV 88.0, MCH 27.9, MCHC 31.7 L, RDW 14.5, Plt Count 456 H, MPV 7.1 L, Neut % (Auto) 74.4, Lymph % ( Auto) 15.6, Coles % (Auto) 6.8, Eos % (Auto) 2.7, Baso % (Auto) 0.5, Neut # (Auto ) 6.7, Lymph # (Auto) 1.4, Coles # (Auto) 0.6, Eos # (Auto) 0.2, Baso # (Auto) 0.0 11/26/17 18:50: Sodium 141, Potassium 4.7, Chloride 107, Carbon Dioxide 27, Anion Gap 11.7, BUN 33 H, Creatinine 1.78 H, Estimated Creat Clear 42, Estimated GFR 38 L, Est GFR ( Amer) 45 L, Glucose 187 H, Calcium 8.3 L, Total Bilirubin 0.2, AST 17, ALT 19, Alkaline Phosphatase 126 H, Total Creatine Kinase 31 L, CK-MB (CK-2) < 0.5, CK-MB (CK-2) Rel Index 1.6, Troponin I < 0.02, Total Protein 7.1, Albumin 2.2 L, Globulin 4.9 H, Albumin/Globulin Ratio 0.4 L 11/26/17 20:08: Stool Occult Blood Positive A Result diagrams: 11/26/17 18:30 11/26/17 18:50 Orders (Tests/Meds): ORDERS Category Date Time Status CT cervical spine wo con Stat Cat Scan 11/26/17 17:[address] head/brain wo con Stat Cat Scan 11/26/17 17:42 Taken XR chest AP Stat Exams 11/26/17 17:39 Taken XR hip LT 2-3V w/pelvis Stat Exams 11/26/17 17:39 Taken Blood Culture Stat Micro 11/26/17 19:00 Received - Radiology Data #1 Image(s): Chest, Pelvis Image Reviewed: Yes I reviewed the patient's radiology image Preliminary Findings: Normal/NAD - CT Data CT Scan: Head, C-Spine Time Received: 20:[address] Reviewed: Yes: I have viewed the radiologist's interpretation - ECG Data Tracing #1 64 normal sinus rhythm T-wave inversion in inferior leads lateral leads. This is an improvement from prior EKGs done on 1220 and [address] elevation nferior wall [place]. I reviewed all his ECGs in this facility. Only normal EKG was in March 2013. ECG initial impression date: 11/26/17 - Keith Inquiry Pt receiving c
[2017-11-26 19:02] LABS: Basophils % 0.5 % (0.1-2.0); Eosinophils # 0.2 K/mm3 (0.0-0.4); Eosinophils % 2.7 % (0.1-12.0); Hemoglobin 8.3 g/dL (14.1-18.0); Lymphocytes # 1.4 K/mm3 (0.7-4.5); Lymphocytes % 15.6 K/mm3 (10-50); Mean Corpuscular HGB Conc 31.7 g/dL (31.8-35.4); Mean Corpuscular Hemoglobin 27.9 pg (27.0-31.2); Mean Platelet Volume 7.1 fl (7.4-10.4); Monocytes # 0.6 K/mm3 (0.1-1.0); Monocytes % 6.8 % (1.7-9.3); Neutrophils # 6.7 K/mm3 (1.8-7.8); Neutrophils % 74.4 % (37.0-80.0); Platelet Count 456 K/mm3 (142-424); Red Blood Count 2.95 M/mm3 (4.60-6.20); Red Cell Distribution Width 14.5 % (11.5-17.5)
[2017-11-26 19:26] LABS: Alanine Aminotransferase 19 U/L (12-78); Albumin Level 2.2 gm/dL (3.4-5.0); Albumin/Globulin Ratio 0.4 (1.1-1.8); Alkaline Phosphatase 126 U/L (46-116); Anion Gap 11.7 mEq/L (5-15); Aspartate Amino Transferase 17 U/L (15-37); Bilirubin,Total 0.2 mg/dL (0.2-1.0); Blood Urea Nitrogen 33 mg/dL (7-18); Calcium 8.3 mg/dL (8.5-10.1); Carbon Dioxide 27 mmol/L (21.0-32.0); Chloride 107 mmol/L (98-107); Creatine Kinase 31 U/L (39-308); Creatinine Clearance Estimated 42 mL/min (0-300); Creatinine,Serum 1.78 mg/dL (0.70-1.30); Estimated Glomerular Filt Rate 38 ml/min (>60); GFR (African American) 45 ML/MIN (>60); Globulin 4.9 gm/dl (1.3-3.2); Glucose 187 mg/dL (74-106); Potassium 4.7 mmoL/L (3.5-5.1); Sodium 141 mmol/L (136-145); Total Protein,Serum 7.1 gm/dL (6.4-8.2); Troponin I < 0.02 ng/ml (0.00-0.06)
[2017-11-26 19:27] LABS: CKMB Relative Index 1.6 U/L (0-4.0); Creatine Kinase MB < 0.5 mg/ml (0.0-3.6)
[2017-11-26 19:33] VITALS: BP 140/75; PULSE 58; RESP 16; O2SAT 94
[2017-11-26 20:16] LABS: Occult Blood,Stool Positive (Negative)
--- NOTE | 2017-11-26 20:56 | PC.NURSE ---
Called report to Milagro at [facility]
[2017-11-26 21:22] VITALS: BP 160/75; PULSE 72; RESP 16; O2SAT 98
[2017-11-26 22:23] VITALS: BP 145/70; PULSE 61; O2SAT 97
== END 2017-11-26 23:44 | disposition home or self-care (01) ==
PROVIDERS: Emergency Provider Emergency Medicine; PCP Family Medicine
DX: D64.9 Anemia, unspecified (principal); N28.9 Disorder of kidney and ureter, unspecified; Z89.512 Acquired absence of left leg below knee; E11.42 Type 2 diabetes mellitus with diabetic polyneuropathy; L89.309 Pressure ulcer of unspecified buttock, unspecified stage; Z91.81 History of falling; Z79.02 Long term (current) use of antithrombotics/antiplatelets; Z79.82 Long term (current) use of aspirin; Z79.4 Long term (current) use of insulin; Z79.891 Long term (current) use of opiate analgesic; Z79.899 Other long term (current) drug therapy; I25.10 Atherosclerotic heart disease of native coronary artery without angina pectoris; K21.9 Gastro-esophageal reflux disease without esophagitis; I25.2 Old myocardial infarction
CPT/HCPCS: 36415; 70450; 71045; 72125; 73502; 80053; 82272; 82550; 82553; 84484; 85025; 87040; 93005; 99284; G0328

== ENCOUNTER 2017-12-07 09:57 | Outpatient (CLI) | payer MEDICARE, MEDICAID, SELFPAY | END 2017-12-07 10:15 | disposition home or self-care (01) | LOC: INF 10:00 | PROVIDERS: PCP Family Medicine; Visit Provider Orthopaedic Surgery | DX: M86.172 Other acute osteomyelitis, left ankle and foot (principal) | CPT/HCPCS: G0463 ==

== ENCOUNTER → 2017-12-11 11:13 | Outpatient (REF) | payer MEDICARE, MEDICAID, SELFPAY | LOC: LAB 11:13 | PROVIDERS: Visit Provider Podiatrist | DX: Z51.89 Encounter for other specified aftercare (principal) | CPT/HCPCS: 87070; 87077; 87186; 87205 ==

== ENCOUNTER 2017-12-21 09:45 | Outpatient (CLI) | payer MEDICARE, MEDICAID, SELFPAY ==
[2017-12-21] VITALS (8 sets, daily range): BP systolic 145–163; BP diastolic 63–85; PULSE 60–67; RESP 16–18; TEMP 36.6; BMI 26.8
--- NOTE | 2017-12-21 11:17 | PC.NURSE ---
Per group home, obtained height and weight from patient's nurse.
== END 2017-12-21 14:05 | disposition home or self-care (01) ==
LOC: INF 09:54
PROVIDERS: PCP Family Medicine; Visit Provider Podiatrist
DX: E11.621 Type 2 diabetes mellitus with foot ulcer (principal); L97.519 Non-pressure chronic ulcer of other part of right foot with unspecified severity; B95.62 Methicillin resistant Staphylococcus aureus infection as the cause of diseases classified elsewhere
CPT/HCPCS: 96365; 96366; J2407

== ENCOUNTER 2017-12-27 10:00 | Outpatient (RCR) | payer MEDICARE, MEDICAID, SELFPAY ==
--- NOTE | 2017-12-13 10:58 | HMH.PTOPWND ---
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 He currently resides in a SNF where he receives wound care for syed LE. His right foot has multiple DFUs with a hard black heel eschar among them. Wound Eval Wound Right Posterior Heel Wound Type Pressure Ulcer Is This a Chronic Wound Yes Wound Staging Unstageable Query Text:Stage I - Unbroken, red skin, no blanching. Stage II - Skin broken, superficial skin loss involving epidermis alone or also dermis. Partial loss of skin layers. Stage III - Pressure area involves epidermis, dermis and subcutaneous tissue, full thickness skin loss. Stage IV - Pressure area involves epidermis, subcutaneous tissue, bone and other supportive tissue. Full thickness skin loss with extensive destruction of underlying tissue and structures. Wound Length (cm) 4.3 Wound Width (cm) 4.5 Wound Bed Appearance Necrotic Percentage of Eschar (Black) (%) 100 Drainage Description Serosanguineous Drainage Amount Scant Drainage Odor Slight Odor Dressing Status Changed Wound Topical Solution/Irrigant Antibiotic Irrigant Comment betadine Primary Dressing Gauze Pad Wound Secondary Dressing Type Gauze Roll/Wrap Wound Debridement Method Sharps Forceps Wound Debridement Amount of Tissue Minimal Removed Wound Debridement Result Necrotic Tissue Remains Right Lateral Heel Wound Type Diabetic Foot Ulcer Is This a Chronic Wound Yes Wound Staging Unstageable Query Text:Stage I - Unbroken, red skin, no blanching. Stage II - Skin broken, superficial skin loss involving epidermis alone
== END 2017-12-27 10:01 | disposition home or self-care (01) ==
LOC: PT 10:00
PROVIDERS: PCP Family Medicine; Visit Provider Podiatrist
DX: E11.621 Type 2 diabetes mellitus with foot ulcer (principal); L97.519 Non-pressure chronic ulcer of other part of right foot with unspecified severity
CPT/HCPCS: 97163; 97597; 97598

== ENCOUNTER 2018-01-07 03:59 | Emergency (ER) | payer MEDICARE, MEDICAID, SELFPAY ==
[2018-01-07 03:59] VITALS: PULSE 28; RESP 0; O2SAT 0; BMI 33.9
--- NOTE | 2018-01-07 04:24 | HMH.EDCPR ---
ED Disposition Clinical Impression: Cardiac arrest Disposition: Condition on Discharge: Critical Referrals: Hany Martinez MD [Primary Care Provider] - - Critical Care Critical Care Time: No Attestation: On 01/07/18, the high probability of a clinically significant, sudden or life threatening deterioration of the following system(s) required my full and direct attention, intervention and personal management. The time I documented below is in addition to time spent performing reported procedures but includes the following listed in this critical care notation. [facility] Code Documentation - Arrest Information Outside of Hospital The Code Document Section documentation for [id number] Stacey Plascencia was populated with data that defaulted in from the residential program director in the Code Assessment on f_Reg Service Date] to provide within this report, the status and treatment of the patient in the ED during a Code. This documentation will be supplemented with my direct findings within the body of the report. Date Treatment Initiated: 01/07/18 Time Treatment Initiated: 03:38 Treatment Initiated By: EMS Location of Arrest: [facility] Arrest Witnessed: Yes Estimated Down Time: 10 minutes - Arrest Information in Hospital Date of Arrest: 01/07/18 Location of Arrest In-house: Emergency Department Type of Arrest In-house: Cardiac In-house Arrest Witnessed: Unknown - ALS Code Inititation ALS Initiated By: EMS ALS Type: ACLS ALS Initiated Start Time: 03:38 - Patient Condition At Code Start Condition of Patient at Start of Code: Pulseless, Apneic, Unconscious Monitoring Devices: ECG Monitor, Pulse Oximeter - Circulation Initial Cardiac Rhythm: Asystole - Oxygenation Oxygen Breathing Status: Assisted Oxygen Delivery Method: Bag-Valve Mask FIO2: 100 - Procedures ABG's Drawn: No Labs Drawn: No - Code End Time Code Ended: 04:05 Patient Successfully Resuscitated: No Reason Code Ended: - Efforts Terminated Family Members Present During Code: No Names of All Individuals Present at Code: Dallin Shabazz RN, Juana Davila RN-housekeeping aide, Ermias Cooper RN, Ramesh Valencia RT, Fernanda Mehta RN, Jade Figueroa Medic Medical Decision Making - Medical Records Medical records reviewed: Yes: I reviewed the patient's medical records. Vital Signs: 01/07/18 04:09 Pulse Rate [Carotid] 28 L Respiratory Rate 0 L 02 Sat by Pulse Oximetry 0 L Oxygen Delivery Method Ambu-Bag - Keith Inquiry Pt receiving controlled substance: No CPR HPI - General Chief Complaint: Cardiac Arrest/CPR Stated Complaint: Difficulty Breathing Time Seen by Provider: 01/07/18 04:00 Mode of Arrival: EMS Source of Information: EMS, Medical Record Limitations: unresponsive Description of Symptoms (Recalled from ER Triage Doc. by RN): Cardiac arrest - History of Present Illness HPI narrative: [facility] with sudden dec hr and resp and cpr started and ems with acls protocol - MD complaint: found unresponsive Associated symptoms: shortness of breath Known history of: CAD Associated injuries: No - Related Data Home Medications Medication Instructions Recorded Confirmed Acetaminophen [Tylenol 500mg 500 mg PO Q4HP PRN 11/07/17 12/21/17 tablet] Amlodipine Besylate [Norvasc 5mg 5 mg PO DAILY 11/07/17 12/21/17 tablet] Aspirin [Aspir 81] 81 mg PO DAILY 11/07/17 12/21/17 Clopidogrel Bisulfate [Plavix 75mg 75 mg PO DAILY 11/07/17 12/21/17 Tab] Collagenase Clostridium Hist. 30 gm TP DAILY 11/07/17 12/21/17 [Santyl Ointment 30gm] Glimepiride 4 mg PO DAILY 11/07/17 12/21/17 Insulin Lispro [Humalog Kwikpen 9 unit SQ ACHS PRN 11/07/17 12/21/17 U-100] Ipratropium/Albuterol Sulfate 3 ml IH QIDP PRN 11/07/17 12/21/17 [Duoneb 3mL neb] LORazepam [Ativan 0.5mg tablet] 0.5 mg PO NEEDED PRN 11/07/17 12/21/17 Lisinopril [Lisinopril 20mg Tab] 20 mg PO DAILY 11/07/17 12/21/17 Metoprolol Tartrate [Metoprolol 1
--- NOTE | 2018-01-07 04:27 | ED_ITS ---
ED Disposition Clinical Impression: Cardiac arrest Disposition: Condition on Discharge: Critical Referrals: Hany Martinez MD [Primary Care Provider] - - Critical Care Critical Care Time: No Attestation: On 01/07/18, the high probability of a clinically significant, sudden or life threatening deterioration of the following system(s) required my full and direct attention, intervention and personal management. The time I documented below is in addition to time spent performing reported procedures but includes the following listed in this critical care notation. [facility] Code Documentation - Arrest Information Outside of Hospital The Code Document Section documentation for [id number] Stacey Plascencia was populated with data that defaulted in from the behavioral consultant in the Code Assessment on f_Reg Service Date] to provide within this report, the status and treatment of the patient in the ED during a Code. This documentation will be supplemented with my direct findings within the body of the report. Date Treatment Initiated: 01/07/18 Time Treatment Initiated: 03:38 Treatment Initiated By: EMS Location of Arrest: alf Arrest Witnessed: Yes Estimated Down Time: 10 minutes - Arrest Information in Hospital Date of Arrest: 01/07/18 Location of Arrest In-house: Emergency Department Type of Arrest In-house: Cardiac In-house Arrest Witnessed: Unknown - ALS Code Inititation ALS Initiated By: EMS ALS Type: ACLS ALS Initiated Start Time: 03:38 - Patient Condition At Code Start Condition of Patient at Start of Code: Pulseless, Apneic, Unconscious Monitoring Devices: ECG Monitor, Pulse Oximeter - Circulation Initial Cardiac Rhythm: Asystole - Oxygenation Oxygen Breathing Status: Assisted Oxygen Delivery Method: Bag-Valve Mask FIO2: 100 - Procedures ABG's Drawn: No Labs Drawn: No - Code End Time Code Ended: 04:05 Patient Successfully Resuscitated: No Reason Code Ended: - Efforts Terminated Family Members Present During Code: No Names of All Individuals Present at Code: Dallin Shabazz RN, Juana Davila RN-household appliance mechanic, Ermias Cooper RN, Ramesh Valencia RT, Fernanda Mehta RN, Jade Figueroa Medic Medical Decision Making - Medical Records Medical records reviewed: Yes: I reviewed the patient's medical records. Vital Signs: 01/07/18 04:09 Pulse Rate [Carotid] 28 L Respiratory Rate 0 L 02 Sat by Pulse Oximetry 0 L Oxygen Delivery Method Ambu-Bag - Keith Inquiry Pt receiving controlled substance: No CPR HPI - General Chief Complaint: Cardiac Arrest/CPR Stated Complaint: Difficulty Breathing Time Seen by Provider: 01/07/18 04:00 Mode of Arrival: EMS Source of Information: EMS, Medical Record Limitations: unresponsive Description of Symptoms (Recalled from ER Triage Doc. by RN): Cardiac arrest - History of Present Illness HPI narrative: pt at [facility] with sudden dec hr and resp and cpr started and ems with acls protocol - MD complaint: found unresponsive Associated symptoms: shortness of breath Known history of: CAD Associated injuries: No - Related Data Home Medications Medication Instructions Recorded Confirmed Acetaminophen [Tylenol 500mg 500 mg PO Q4HP PRN 11/07/17 12/21/17 tablet] Amlodipine Besylate [Norvasc 5mg 5 mg PO DAILY 11/07/17 12/21/17 tablet] Aspirin [Aspir 81] 81 mg PO DAILY
--- NOTE | 2018-01-07 04:55 | PC.NURSE ---
Renato was notifed and unable to rule for donation at this time and will call back
--- NOTE | 2018-01-07 04:56 | PC.NURSE ---
appraisal specialist notified
[2018-01-07 06:37] VITALS: BP 00/00; PULSE 0; RESP 0; TEMP -17.7; TEMP 0; O2SAT 0
== END 2018-01-07 06:37 | disposition expired ==
PROVIDERS: Emergency Provider Emergency Medicine; PCP Family Medicine
DX: I46.9 Cardiac arrest, cause unspecified (principal); I25.10 Atherosclerotic heart disease of native coronary artery without angina pectoris; K21.9 Gastro-esophageal reflux disease without esophagitis; N28.9 Disorder of kidney and ureter, unspecified; E10.9 Type 1 diabetes mellitus without complications; Z79.4 Long term (current) use of insulin; Z89.512 Acquired absence of left leg below knee; Z79.82 Long term (current) use of aspirin; Z79.899 Other long term (current) drug therapy
CPT/HCPCS: 92950; 96374; 96375; 99291